=== PATIENT | female | born 1995 | race Caucasian/White ===

== ENCOUNTER 2016-03-30 20:20 | Inpatient (IN) | payer MEDICAID, OTHER ==
[~2016-03-30] VITALS: Ht 157.5 cm; Wt 91.2 kg
[~2016-03-30 20:20] MED LIST: FERROUS GLUCON324 MG PO; PNV-SELECT1 TAB PO
[2016-03-30 20:39] VITALS: BP 114/59
[2016-03-30] MEDS ORDERED: AMPICILLIN 2,000 MG in NACL 0.9% MINI-BAG PLUS 100 ML IV SCH (21:00)
[2016-03-30] MEDS ORDERED: OXYTOCIN 10 UNITS/ML VIAL IM SCH (21:00)
[2016-03-30] MEDS ORDERED: NALBUPHINE HYDROCHLORIDE 10 MG/ML VIAL IVP PRN (21:00)
[2016-03-30] MEDS ORDERED: PROMETHAZINE 25 MG/ML VIAL IVP PRN (21:00)
[2016-03-30] MEDS ORDERED: LACTATED RINGERS 500 ML IV SCH (21:00)
[2016-03-30] MEDS ORDERED: OXYTOCIN 20 UNITS/LR PREMIX 1,000 ML IV SCH (21:00)
[2016-03-30] MEDS ORDERED: AMPICILLIN 2,000 MG VIAL ONE (21:25)
[2016-03-30] MEDS ORDERED: NALBUPHINE HYDROCHLORIDE 10 MG/ML VIAL ONE (21:47)
[2016-03-30] MEDS ORDERED: PROMETHAZINE 25 MG/ML VIAL ONE (21:48)
[2016-03-30] MEDS: LACTATED RINGERS 1,000 ML IV SCH ×3 (21:52→23:56)
[2016-03-30] MEDS ORDERED: OXYTOCIN 10 UNITS/ML VIAL ONE (22:04)
[2016-03-30] MEDS ORDERED: LIDOCAINE 1% 0 ML ONE (22:05)
[2016-03-30] MEDS ORDERED: ROPIVACAINE 0.2%/NS PREMIX 250 ML EPI ONE (22:41)
[2016-03-30] MEDS ORDERED: ROPIVACAINE 0.2%/NS PREMIX 250 ML EPI SCH (23:00)
[2016-03-31] MEDS ORDERED: AMPICILLIN 1,000 MG VIAL ONE ×3 (01:18→09:00)
[2016-03-31] MEDS: AMPICILLIN 1,000 MG in NACL 0.9% MINI-BAG PLUS 50 ML IV SCH ×2 (01:19→05:19)
[2016-03-31] MEDS ORDERED: INFLUENZA VIRUS VACCINE QUAD 0.5 ML SYR IMVAC SCH (02:25)
[2016-03-31] MEDS ORDERED: OXYTOCIN 20 UNITS/LR PREMIX 1,000 ML IV ONE (03:38)
[2016-03-31] MEDS ORDERED: ACETAMINOPHEN 325 MG TAB PO PRN (05:45)
[2016-03-31] MEDS ORDERED: ACETAMINOPHEN 325 MG TAB ONE (05:52)
--- NOTE | 2016-03-31 08:36 | NUR ---
PATIENT HAS BEEN SCREENED AND CATEGORIZED LOW NUTRITION RISK. PATIENT WILL BE SEEN WITHIN 7 DAYS OF ADMISSION. 04/06/[address]
[2016-03-31] MEDS ORDERED: METHYLERGONOVINE 0.2 MG/ML AMP ONE (10:26)
[2016-03-31] MEDS ORDERED: TEMAZEPAM 15 MG CAP PO PRN (12:10)
[2016-03-31] MEDS ORDERED: BENZOCAINE/MENTHOL 20%-0.5% 60 GM CAN TP PRN (12:10)
[2016-03-31] MEDS ORDERED: MEASLES, MUMPS, AND RUBELLA 1 VIAL SQVAC PRN (12:10)
[2016-03-31] MEDS ORDERED: HYDROcodone/APAP 5/325 MG 1 TAB TAB PO PRN (12:10)
[2016-03-31] MEDS ORDERED: WITCH HAZEL 40 PAD PACKAGE TP PRN (12:10)
[2016-03-31] MEDS ORDERED: oxyCODONE/APAP 5/325 MG 1 TAB TAB ONE (12:48)
[2016-03-31] MEDS ORDERED: DOCUSATE SOD/SENNA 50/8.6 MG 1 TAB PO SCH (21:00)
[2016-03-31] MEDS: oxyCODONE/APAP 5/325 MG 1 TAB TAB PO PRN (22:02)
[2016-04-01] MEDS: oxyCODONE/APAP 5/325 MG 1 TAB TAB PO PRN ×2 (04:36→13:36)
[2016-04-02] MEDS: oxyCODONE/APAP 5/325 MG 1 TAB TAB PO PRN (10:31)
== END 2016-04-02 14:45 | disposition home or self-care (01) | DRG 560 ==
LOC: MFCC 20:20
PROVIDERS: ADMIT Obstetrics & Gynecology; ATTEND Obstetrics & Gynecology
PROC: 3E0S3CZ (ICD-10-PCS; 2016-03-30)
PROC: 00HU33Z Insertion of Infusion Device into Spinal Canal, Percutaneous Approach (ICD-10-PCS; 2016-03-30)
PROC: 10E0XZZ Delivery of Products of Conception, External Approach (ICD-10-PCS; principal; 2016-03-31)
DX: O99.214 Obesity complicating childbirth (principal); E66.9 Obesity, unspecified; Z68.36 Body mass index [BMI] 36.0-36.9, adult; Z37.0 Single live birth; O99.824 Streptococcus B carrier state complicating childbirth; Z3A.37 37 weeks gestation of pregnancy